=== PATIENT | male | born 1965 | race Caucasian/White ===

== ENCOUNTER → 2024-02-21 10:21 | Outpatient (REF) | payer BC, SELFPAY ==
[2024-02-21 12:45] LABS: Hematocrit 45.7 % (39.0-52.0); Hemoglobin 16.3 g/dL (13.0-18.0); Mean Corp Hgb Conc. 35.7 g/dL (33.0-37.0); Mean Corpuscular Hgb 32.2 pg (27.0-31.0); Mean Corpuscular Volume 90.3 fL (80.0-94.0); Nucleated Red Blood Cells % 0 % (-); Platelet Count 309 10^3/uL (130-400); Red Blood Cell Count 5.06 10^6/uL (4.70-6.10); Red Cell Dist. Width 12.7 % (11.5-14.5)
[2024-02-21 12:51] LABS: ALT (SGPT) 29 U/L (0-50); AST (SGOT) 29 U/L (17-59); Albumin 3.2 g/dl (3.5-5.0); Alkaline Phosphatase 67 U/L (38-126); Blood Urea Nitrogen 26 mg/dl (9-20); Calcium 9.3 mg/dl (8.4-10.2); Carbon Dioxide 20 mmol/L (22-30); Chloride 101 mmol/L (98-107); Glucose 116 mg/dl (70-99); Potassium 4.4 mmol/L (3.5-5.1); Sodium 133 mmol/L (135-145); Total Bilirubin 0.9 mg/dl (0.2-1.3); Total Protein 5.9 g/dl (6.3-8.2); eGFR > 60.00
[2024-02-21 14:47] LABS: Absolute Neutrophils -Man Diff 6.1 10^3/uL (1.4-6.5); Band Neutrophils 13 % (0-3); Eosinophils 3 % (0-6); Lymphocytes 11 % (20-51); Monocytes 17 % (2-9); Normal RBC Morphology Yes; Platelets Checked Yes; Segmented Neutrophils 55 % (42-75); Total Cells Counted 100
== END ==
LOC: HWLAB 10:21
PROVIDERS: ATTENDING PHYSICIAN Nurse Practitioner Adult Health
DX: R19.7 Diarrhea, unspecified (principal)
CPT/HCPCS: 36415; 80053; 85025

== ENCOUNTER 2024-02-21 13:58 | Emergency (ER) | payer BC, SELFPAY ==
[2024-02-21 14:02] VITALS: BP 92/56
[2024-02-21] MEDS: NSS 1000 IV (15:47)
--- NOTE | 2024-02-21 15:51 | ED.GENMED ---
History of Present Illness
General
Chief Complaint: Abdominal Symptoms
Source: patient
Time Seen by Provider: 02/21/24 15:19
Travel History
Have you had any contact with someone who has COVID-19?: No
Do you have any symptoms of coronavirus? Fever > 100 degrees, chills, cough, shortness of breath, sore throat, loss of taste or smell, muscle aches, or headache?: No
History of Present Illness
History of Present Illness:
58-year-old male with past medical history of diabetes and hyperlipidemia presenting to the emergency department for evaluation of nausea vomiting and diarrhea that have been ongoing for a little over 1 week. Patient states symptoms started with
diarrhea only while he was on vacation in [place] stating he had consumed raw foods as well as cooked foods, no other family member sick with similar symptoms. Patient and returned home this past Sunday and patient woke up feeling a
little bit worse than normal and had been persistently vomiting until Sunday when the vomiting stopped but he still notes he is still having diarrhea. Diarrhea is described to be very watery with no formed stool. He has not had any fevers but
does admit to chills. Today he was at the primary care's office and they were able to check labs and sent off a stool study and were attempting to get a urinalysis however patient was unable to urinate so they sent him to the ER with concerns for
dehydration. Patient denies any use of antibiotics.
Past History
Past History
ED Past Medical History: Hypercholesterolemia and Other (External hemorrhoids)
ED Past Surgical History: None
Social History
Tobacco: Non-smoker
Alcohol: Occasional
Drug: None
Personal:
Living: with family
Employment: Employed
Family History
Family History: Hypertension; Negative CAD
Review of Systems
Review of Systems
All Other Systems: ROS reviewed and negative except as documented in HPI and ROS
Phy Exam
Physical Exam
Physical Exam:
GENERAL: Alert , in no apparent distress
EYE: clear conjunctiva b/l
HEAD: NCAT
ENT: o/p clr, mmm.
CARDIAC: Regular rate and rhythm .
LUNGS: Clear breath sounds bilaterally, no acute respiratory distress, no wheezes/rales/rhonchi
ABDOMEN: Soft, without focal tenderness but distended, no r/g, no cvat
NEUROLOGICAL: Alert and oriented
SKIN: Warm and dry, skin intact.
MUSCULOSKELETAL: No edema, well perfused.
PSYCH: Normal and appropriate interaction.
Scores
Heart Failure Risk
Heart Failure Risk Score: Not Applicable
Heart Score for Chest Pain Patients
STEMI patient?: Not applicable
Withdrawal Assessment of Alcohol
Withdrawal Assessment Completed?: Not applicable
Course
Orders/Labs/Results
Orders:
Orders
02/21/24 15:25
0.9% Sodium Chloride 1000 ml [Nss] 1,000 ml IV BOLUS
02/21/24 15:47
Lactic Acid Q4H
Comment: CANCEL 2nd LACTIC ACID IF 1st LACTIC ACID IS LESS THAN 2
02/21/24 17:13
Urinalysis Reflex To Culture Urgent
Date Specimen was Collected: 02/21/24
Time Specimen was Collected: 15:28
Abnormal Lab Results
02/21/24
17:13
Urine Glucose 3+ A
(Negative)
02/21/24 15:25
02/21/24 15:25
Vital Signs
Initial and Last Documented VS:
Initial Vital Signs
Temp Pulse Resp BP Pulse Ox
98.4 F 98 18 92/56 98
02/21/24 14:02 02/21/24 14:02 02/21/24 14:02 02/21/24 14:02 02/21/24 14:02
Last Documented Vital Signs
Temp Pulse Resp BP Pulse Ox
98.4 F 70 18 99/60 96
02/21/24 14:02 02/21/24 17:15 02/21/24 17:15 02/21/24 17:15 02/21/24 17:15
MDM/Problems Addressed
Differential Diagnosis Includes:
Dehydration, electrolyte disturbance, infectious colitis/diarrhea
MDM/Problems Addressed:
58-year-old male present emergency department for little over 1 week of nausea vomiting and diarrhea. Vomiting is subsided and patient notes he is able to tolerate liquids. Has been attempting brat diet but also notes he had minimal appetite.
Labs were ordered from primary care provider which show no leukocytosis. There is prerenal azotemia. Normal electrolytes. Stool studies were sent but they are going to be done at an outpatient lab facility and not done here. Will attempt to
obtain stool studies here so this can be done and resulted sooner. In the meantime we will check lactic acid given patient's mild hypotension and attempt a get a urine sample. I did perform a bedside bladder scan which showed 190 mL of urine.
*Pulse Oximetry
Patient hypoxic: no
*Critical Care Note
Total Time (30-74mins, 75-104mins- exclusive of procedures): Not Applicable
Data Reviewed
Review of Other/Old Records Reveals: Labs
Source: patient and records
Patient Management
Escalation/DeEscalation of care consider admission/obs:
Patient feeling better upon reevaluation. Able to urinate without any difficulty. Feels comfortable being discharged home. Unable to have bowel movement here. Will await stool study that was provided by primary care provider. Aware of return
precautions to the emergency department
ED Attending Note
-
Portions of this chart may have been created with voice recognition software.� Occasional wrong word or��sound alike� substitutions may have occurred due to the inherent limitations of voice recognition software.
Discharge Plan
Departure
Patient Disposition: Home (Routine Discharge)
Date of Disposition: 02/21/24
Time of Disposition: 17:10
Patient with high blood pressure during this ER visit?: No
Discharge Problem:
Dehydration, Diarrhea
Instructions: Dehydration, Adult (DC)
Prescriptions:
No Action
aspirin 81 MG tablet,delayed release (DR/EC)
81 mg PO DAILY
docosahexaenoic acid-epa 1 CAP capsule
1 cap PO DAILY
rosuvastatin 10 MG tablet
10 mg PO QPM
diphenoxylate-atropine 1 TABLET tablet
1 tab PO QIDPRN PRN (Reason: diarrhea) Qty: 15 0RF
hydrocortisone acetate 25 MG suppository
25 mg LA BID Qty: 30 0RF
Referrals:
Ping Hurtado CRNP [Family Provider] -
Interventions
Interventions:
*Risk Screen - Suicide Last Done: 02/21/24 14:02
*General Assessment Last Done: 02/21/24 14:02
*Neglect/Abuse Screening Last Done: 02/21/24 14:02
ED- Fall Risk Assessment Last Done: 02/21/24 17:20
*ED COVID-19 Vaccine History Last Done: 02/21/24 14:02
*Nursing Disposition Last Done: 02/21/24 17:20
AP-Muvutm-Wqhpffodwh Assessment Last Done: 02/21/24 15:53
Discharge Date and Time
Discharge Date/Time: 02/21/24 17:21
Print Language: SAL[place]AD[place]
[2024-02-21 17:15] VITALS: BP 99/60
[2024-02-21 17:28] LABS: Urine Albumin Negative (Neg - Trace); Urine Bilirubin Negative (Negative); Urine Character Clear (Clear); Urine Color Yellow; Urine Glucose 3+ (Negative); Urine Ketone Negative (Negative); Urine Leukocyte Negative (Negative); Urine Nitrite Negative (Negative); Urine Occult Blood Negative (Negative); Urine Urobilinogen Negative (Neg - 1+)
== END 2024-02-21 17:21 | disposition home or self-care (01) ==
LOC: EMR 13:58
PROVIDERS: Physician Assistant Medical; EMERGENCY PHYSICIAN Emergency Medicine; FAMILY PHYSICIAN Nurse Practitioner Adult Health
DX: E86.0 Dehydration (principal); R19.7 Diarrhea, unspecified; I95.9 Hypotension, unspecified
CPT/HCPCS: 99284; 96360; 51798; 81003; 83605

== ENCOUNTER → 2024-04-02 06:38 | Outpatient (REF) | payer BC, SELFPAY | LOC: HWRAD 06:38 | PROVIDERS: ATTENDING PHYSICIAN Nurse Practitioner Adult Health | DX: K80.20 Calculus of gallbladder without cholecystitis without obstruction (principal) | CPT/HCPCS: 76700 ==